=== PATIENT | female | born 1995 | race Caucasian/White ===

== ENCOUNTER → 2020-02-25 14:28 | Outpatient (CLI) | payer SELFPAY ==
--- NOTE | 2020-02-25 14:53 | US_ITS ---
STUDY: ULTRASOUND OF THE FEMALE PELVIS - COMPLETE REASON FOR EXAM: Female, 25 years old. PELVIC PAIN W/RECENT DELIVERY LMP: TECHNIQUE: Transabdominal TECHNICAL QUALITY: Adequate. COMPARISON: None. FINDINGS: The uterus is anteverted and is in a midline position. The uterus measures 7.5 x 6.1 x 3.1 cm. Normal uterine cervix. The endometrium measures 1.7 mm in thickness, and is hyperechoic. There is no demonstrated endometrial mass. There is no demonstrated myometrial mass. I.U.D. - The patient does not have an I.U.D. The right ovary is visualized. The right ovary measures 2.6 x 1.5 x 1.2 cm. There is no right ovarian cyst or ovarian mass. There is no visualized right adnexal mass or complex lesion. There is normal arterial and normal venous vascularity. The left ovary is visualized. The left ovary measures 3.0 x 1.5 x 2.2 cm. There is no left ovarian cyst or ovarian mass. There is no visualized left adnexal mass or complex lesion. There is normal arterial and normal venous vascularity. There is minimal fluid in the cul-de-sac, likely physiologic. The bladder is sonographically normal US/Pelvic (Non ) IMPRESSION: Sonographically normal uterus and ovaries. Small amount of free fluid in cul-de-sac, likely physiologic Electronically Signed: Eitan Garcia MD at 16:42 EDT , Service support ,
[2020-02-25 15:16] LABS: Absolute Lymphocyte Count 1.76 X10^3/uL (0.83-4.51); Basophil# 0.03 X10^3/uL; Basophil% 0.5 % (0-1); Eosinophil# 0.25 X10^3/uL; Eosinophils% 4.5 % (0-5); Hematocrit 37.7 % (37-47); Lymphocyte # 1.76 X10^3/ul (4.0); Lymphocyte % 31.9 % (19-41); Mean Corp Hgb Conc 31.8 g/dL (32-36); Mean Corpuscular Hgb 29.5 pg (27.0-32.0); Mean Corpuscular Volume 92.6 fL (81-99); Mean Platelet Vol. 10.6 fl (6.2-12.0); Monocyte# 0.51 X10^3/uL; Monocyte% 9.2 % (0-10); NRBC Flagged by Analyzer 0 % (0-5); Neutrophil # 2.95 X10^3/uL (2.7-7.7); Neutrophil % 53.5 % (47-70); Platelet Count 177 K/mm3 (150-450); RBC Distribution Width CV 11.9 % (11.6-14.6); RBC Distribution Width SD 40.4 fl (35.1-43.9); Red Blood Count 4.07 M/mm3 (4.2-5.4); White Blood Count 5.5 K/mm3 (4.4-11.0)
== END ==
PROVIDERS: PCP Nurse Practitioner Family; Referring Provider Nurse Practitioner Family; Visit Provider Nurse Practitioner Family
DX: O26.899 Other specified pregnancy related conditions, unspecified trimester (principal); R10.2 Pelvic and perineal pain; O99.019 Anemia complicating pregnancy, unspecified trimester; D64.9 Anemia, unspecified; Z3A.00 Weeks of gestation of pregnancy not specified
CPT/HCPCS: 36415; 76856; 85025; 93976